=== PATIENT | female | born 1930 | race Caucasian/White ===

== ENCOUNTER 2016-08-20 15:00 | Inpatient (IN) | payer OTHER, MEDICARE ==
[~2016-08-20] VITALS: Ht 160 cm; Wt 40.8 kg
--- NOTE | ~2016-08-20 | PR ---
[place], [place] PROGRESS NOTE NAME: VANESSA RODRIGUEZ UNIT #: [id number] ROOM: 428 DOCTOR: SUKHDEEP RAE MD BIRTHDATE: [birth year] DOS: 08/26/2016 SUBJECTIVE: The patient is complaining of significant lower back pains, and she is uncomfortable, and she has not had her Dilaudid since yesterday. OBJECTIVE: VITAL SIGNS: Blood pressure 118/44, heart rate of 85 beats per minute, breathing 8 times per minute, temperature 98 degrees Fahrenheit. GENERAL APPEARANCE: The patient is alert and oriented x3, in no visible distress. Generalized weakness. HEENT AND NECK: Exam within normal limits. CARDIOVASCULAR SYSTEM: Heart rate is regular in rate and rhythm. S1 and S2 normally audible. LUNGS: Clear to auscultation. ABDOMEN: Soft, nontender. No obvious organomegaly. Bowel sounds are present. EXTREMITIES: Without significant cyanosis or edema. IMPRESSION: 1. The patient with significant lower back pains, and she did not receive her Dilaudid. I am going to convert it to automatic dosing at every 4 hours to avoid this happening again. The patient already on fentanyl patch and end of life care. 2. 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 3. Benign essential hypertension with controlled blood pressures. 4. Intractable nausea and vomiting is related to malignancy is much better controlled now with treatment. SUKHDEEP RAE MD CM:PNTRANS [id number] SUKHDEEP RAE MD 08/27/16 0649 interface
--- NOTE | ~2016-08-20 | PR ---
[place], [place] PROGRESS NOTE NAME: VANESSA RODRIGUEZ UNIT #: [id number] ROOM: 428 DOCTOR: RISA LEWIS MD BIRTHDATE: [birth year] DOS: 08/31/2016 SUBJECTIVE: The patient is showing no new changes. PHYSICAL EXAMINATION: VITAL SIGNS: Blood pressure 110/38, pulse of 90, respirations 18, temperature 98.6. GENERAL: Unresponsive, lethargic. LUNGS: Diminished breath sounds, clear. HEART: Regular. ASSESSMENT AND PLAN: CA of the breast with mets, on hospice care. The patient is unresponsive. Continue supportive, symptomatic are. No new changes made in the treatment plan. RISA LEWIS MD CM:PNTRANS [id number] RISA LEWIS MD 10/06/16 1447 interface
--- NOTE | ~2016-08-20 | PR ---
[place], [place] PROGRESS NOTE NAME: VANESSA RODRIGUEZ UNIT #: [id number] ROOM: 428 DOCTOR: RISA LEWIS MD BIRTHDATE: [birth year] DOS: 08/29/2016 SUBJECTIVE: The patient is still pretty lethargic and unresponsive. OBJECTIVE: VITAL SIGNS: Graphic trend shows pressure of 94/34, respirations 8, temperature 99.4, pulse of 101. LUNGS: Diminished breath sounds, but clear. HEART: Regular. ASSESSMENT AND PLAN: The patient non-hospice care, end-stage with underlying severe mets from carcinoma breast, prognosis remains poor and guarded. She appears comfortable, no changes made in the medicines today. RISA LEWIS MD CM:PNTRANS [id number] RISA LEWIS MD 08/30/16199 interface
--- NOTE | ~2016-08-20 | PR ---
[place], [place] PROGRESS NOTE NAME: VANESSA RODRIGUEZ UNIT #: [id number] ROOM: 505 DOCTOR: SUKHDEEP RAE MD BIRTHDATE: [birth year] DOS: 08/21/2016 SUBJECTIVE: The patient is awake, oriented, looking very weak and uncomfortable, although her nausea has improved and she is not complaining of any significant pain. OBJECTIVE: GENERAL APPEARANCE: The patient is alert and oriented x 3, in no visible distress. except for generalized weakness and the patient is somewhat uncomfortable. VITAL SIGNS: Blood pressure 102/54, heart rate 81 beats per minute, breathing 20 times per minute, temperature 98 degrees Fahrenheit. HEENT AND NECK: Exam within normal limits. CARDIOVASCULAR SYSTEM: Heart rate is regular in rate and rhythm. S1 and S2 normally audible. LUNGS: Clear to auscultation. ABDOMEN: Soft, nontender. No obvious organomegaly. Bowel sounds are present. EXTREMITIES: Without significant cyanosis or edema. IMPRESSION: The patient for end-of-life care under hospice at [facility]. The patient is somewhat uncomfortable because of recurrent nausea and she is also complaining of constipation. I am adding MiraLax and also give her Ativan on regular basis to keep her comfortable. This was discussed with patient's daughter and she agrees and patient also agrees. The patient on morphine on as needed basis for pain control. Intractable nausea and vomiting, somewhat improved. I will change her metoclopramide to IV and also keep her on IV Zofran to get her to feel better and I will follow her closely. For pain control, the patient is on Dilaudid every 12 hours as needed for pain control. I will also keep her on fentanyl patch for baseline pain control. [place], [place] PROGRESS NOTE NAME: VANESSA RODRIGUEZ UNIT #: [id number] ROOM: 505 DOCTOR: SUKHDEEP RAE MD BIRTHDATE: [birth year] SUKHDEEP RAE MD CM:PNTRANS [phone] SUKHDEEP RAE MD 08/22/16 0644 interface
--- NOTE | ~2016-08-20 | PR ---
[place], [place] PROGRESS NOTE NAME: VANESSA RODRIGUEZ UNIT #: [id number] ROOM: 428 DOCTOR: SUKHDEEP RAE MD BIRTHDATE: [birth year] DOS: 08/23/2016 SUBJECTIVE: The patient says she has mild nausea and no significant pains and she is much more comfortable. OBJECTIVE: VITAL SIGNS: Blood pressure 124/56, heart rate of 83 beats per minute, breathing 16 times per minute, temperature of 98 degrees Fahrenheit. GENERAL APPEARANCE: The patient is cachexic, very weak, with generalized weakness, but she is oriented, although comfortable. HEENT AND NECK: Exam within normal limits. CARDIOVASCULAR SYSTEM: Heart rate is regular in rate and rhythm. S1 and S2 normally audible. LUNGS: Clear to auscultation. ABDOMEN: Soft, nontender. No obvious organomegaly. Bowel sounds are present. EXTREMITIES: Without significant cyanosis or edema. IMPRESSION: 1. 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 2. Intractable nausea, improved with treatment with Zofran, Reglan p.r.n., and Phenergan. 3. Benign essential hypertension, controlled with pressors. 4. Severe upper abdominal pains, controlled with fentanyl patch and p.r.n. morphine. 5. The patient with comfort measures only, being followed very closely under the care of hospice. SUKHDEEP RAE MD CM:PNTRANS [id number] SUKHDEEP RAE MD 08/24/16 1241 interface
--- NOTE | ~2016-08-20 | PR ---
[place], [place] PROGRESS NOTE NAME: VANESSA RODRIGUEZ UNIT #: [id number] ROOM: 428 DOCTOR: SUKHDEEP RAE MD BIRTHDATE: [birth year] DOS: 08/24/2016 SUBJECTIVE: The patient appears comfortable but she is asking for Dilaudid dose, which works well for her. Very weak. Does complain of some nausea, but not severe. OBJECTIVE: VITAL SIGNS: Blood pressure 128/84, heart rate of 81 beats per minute, breathing 18 times per minute, afebrile. GENERAL APPEARANCE: Generalized weakness, emaciation, and cachexia. HEENT AND NECK: Exam within normal limits. CARDIOVASCULAR SYSTEM: Heart rate is regular in rate and rhythm. S1 and S2 normally audible. LUNGS: Clear to auscultation. ABDOMEN: Soft, nontender. No obvious organomegaly. Bowel sounds are present. EXTREMITIES: Without significant cyanosis or edema. IMPRESSION: 1. End-stage metastatic cancer of the breast and no metastasis of the colon and skeleton with severe pain in the epigastric area, controlled with p.r.n. Dilaudid. I am increasing her fentanyl patch to 100 mcg today. 2. Severe intractable nausea and vomiting, much better with present treatment which is being continued. 3. Benign essential hypertension with controlled blood pressures. 4. The patient under hospice care, admitted to the hospital. Her prognosis remains very poor but she is much more comfortable now as compared to when she was admitted. SUKHDEEP RAE MD CM:PNTRANS 1642 001 SUKHEDEP RAE MD 08/25/16 0011 interface
--- NOTE | ~2016-08-20 | PR ---
[place], [place] PROGRESS NOTE NAME: VANESSA RODRIGUEZ UNIT #: [id number] ROOM: 428 DOCTOR: RISA LEWIS MD BIRTHDATE: [birth year] DOS: SUBJECTIVE: The patient is doing poorly, but resting comfortably, seems to be mostly unresponsive, she did not respond to call or stimuli. OBJECTIVE: VITAL SIGNS: Blood pressure is 114/43, pulse of 90, respirations about 10, temperature is 97.4. LUNGS: Diminished breath sounds clear. HEART: Regular. ASSESSMENT AND PLAN: An 86-year-old who is end-stage, on hospice care for breast cancer with mets. Continue Dilaudid and fentanyl. She seems comfortable and we will increase the Dilaudid for better control of pain. RISA LEWIS MD CM:PNTRANS 0801 [id number] RISA LEWIS MD 10/06/16 1447 interface
--- NOTE | ~2016-08-20 | DS ---
[place], [place] DISCHARGE SUMMARY [id number] UNIT #: [id number] ROOM: 428 DOCTOR: SUKHDEEP RAE MD BIRTHDATE: [birth year] DOS: 08/31/2016 DISCHARGE DIAGNOSES: 1. The patient with end-stage metastatic cancer of the breast with known metastasis to the colon and from her disease. 2. Intractable nausea and vomiting and abdominal pains, which were severe and controlled with treatment. 3. Benign essential hypertension. 4. Severe protein calorie malnutrition. 5. Dehydration and hypovolemia from nausea and vomiting. 6. History of pulmonary embolism. 7. Pulmonary hypertension and chronic obstructive pulmonary disease, centrilobular emphysema. HOSPITAL COURSE: The patient was admitted for comfort care and palliative care at [facility] for severe recurrent nausea, vomiting, epigastric and abdominal pains. The patient was treated with Zofran, Phenergan, and Reglan and her nausea and vomiting was controlled. Chronic pains and failure to thrive, especially abdominal pains. The patient wanted to be kept comfortable and she was treated with morphine and pains were reasonably controlled. The patient was given palliative and comfort care only and finally she on 08/31/2016. For further details of her management during her hospital stay, please refer to the chart. SUKHDEEP RAE MD CM:DISCHARG 1414 [id number] SUKHDEEP REA MD 10/06/16 1444 interface
--- NOTE | ~2016-08-20 | PR ---
[place], [place] PROGRESS NOTE NAME: VANESSA RODRIGUEZ UNIT #: [id number] ROOM: 428 DOCTOR: SUKHDEEP RAE MD BIRTHDATE: [birth year] DOS: 08/25/2016 SUBJECTIVE: The patient appears comfortable. She has no complaints, looking very weak. OBJECTIVE: VITAL SIGNS: Blood pressure 117/44, heart rate 91 beats per minute, breathing only 4 times per minute, temperature 97.4 degrees Fahrenheit. GENERAL APPEARANCE: The patient is alert and oriented x 3, in no visible distress, generalized weakness. HEENT AND NECK: Exam within normal limits. CARDIOVASCULAR SYSTEM: Heart rate is regular in rate and rhythm. S1 and S2 normally audible. LUNGS: Clear to auscultation. ABDOMEN: Soft, nontender. No obvious organomegaly. Bowel sounds are present. EXTREMITIES: Without significant cyanosis or edema. IMPRESSION: 1. End-stage metastatic cancer of the breast with metastasis to the colon and skeleton with severe pain in epigastric area. The patient being treated with fentanyl patch and p.r.n. Dilaudid and she appears comfortable. 2. Intractable nausea and vomiting related to the malignancy, better controlled now. 3. Benign essential hypertension with controlled blood pressures. 4. The patient for end-of-life care and is admitted to the hospital with the hospice services. SUKHDEEP RAE MD CM:PNTRANS [phone] SUKHDEEP RAE MD 08/25/16 2340 interface
--- NOTE | ~2016-08-20 | PR ---
[place], [place] PROGRESS NOTE NAME: VANESSA RODRIGUEZ UNIT #: [id number] ROOM: 428 DOCTOR: SUKHDEEP RAE MD BIRTHDATE: [birth year] DOS: 08/27/2016 SUBJECTIVE: The patient is resting and not arousable. PHYSICAL EXAMINATION: VITAL SIGNS: Blood pressure 106/42, breathing 4 to 7 times per minute, afebrile, heart rate from 60-90 beats per minute. NEURO: On physical exam, generalized weakness. The patient is unresponsive today. The patient is emaciated and cachexic. GENERAL APPEARANCE: The patient is alert and oriented x 3, in no visible distress. HEENT AND NECK: Exam within normal limits. CARDIOVASCULAR SYSTEM: Heart rate is regular in rate and rhythm. S1 and S2 normally audible. LUNGS: Clear to auscultation. ABDOMEN: Soft, nontender. No obvious organomegaly. Bowel sounds are present. EXTREMITIES: Without significant cyanosis or edema. IMPRESSION: The patient with end-stage breast cancer with metastasis to the colon and skeleton with severe pain in her upper abdomen and later on lower back, now controlled with Dilaudid on regular basis. The patient is unresponsive today. She is also on a fentanyl patch, and she is admitted under hospice for end of life care. Benign essential hypertension, controlled blood pressure. Intractable nausea and vomiting is reasonably controlled with treatment. It is secondary to malignancy. SUKHDEEP RAE MD CM:PNTRANS [phone] SUKHDEEP RAE MD 08/28/16 0154 interface
--- NOTE | ~2016-08-20 | WRIGHTHP ---
[place], [place] PATIENT HISTORY AND PHYSICAL EXAM NAME: VANESSA RODRIGUEZ [facility] #: [id number] UNIT #: [id number] ROOM: 505 DOCTOR: SUKHDEEP RAE MD BIRTHDATE: [birth year] DOS: 08/20/2016 HISTORY OF PRESENT ILLNESS: The patient is an 86-year-old female, presently being admitted under care of hospice services for; 1. End-stage metastatic cancer of the breast with known metastasis to the colon and vertebrae. 2. Intractable nausea and vomiting and abdominal pains, which is severe. 3. Benign essential hypertension. 4. Severe protein-calorie malnutrition. 5. History of dehydration and hypovolemia from nausea and vomiting. 6. Previous history of ischemic colitis. 7. History of pulmonary embolism. 8. History of pulmonary hypertension and chronic obstructive pulmonary disease. The patient is presently admitted for comfort care and palliative care at [facility] for severe and recurrent nausea, vomiting, and epigastric abdominal pains, which has somewhat improved with treatment with Zofran, Phenergan, Reglan, and morphine being used for pain. The patient was opted to be readmitted under care of community hospice services for end-of-life care. Plan is to keep the patient on these medications as she has become much more comfortable as compared to when she came into the hospital. The patient is not severely vomiting anymore and her nausea has also improved and the pain is under better control. 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 I will also keep her on a fentanyl patch for better pain control and continue morphine on p.r.n. basis. Severe anxiety related to pain, nausea, vomiting, and her present health situation. The patient is being treated with Ativan on a p.r.n. basis and hospice nurses to follow. Severe protein-calorie malnutrition. The patient to be kept on comfort foods only. The patient's prognosis remains very poor. We will take bedsore precautions. Turn every 2 hours and use an air mattress. PHYSICAL EXAMINATION: GENERAL: The patient is very weak, somewhat uncomfortable, but looking better than before. Weak and cachectic. VITAL SIGNS: Blood pressure 110/55, heart rate 89 beats per minute, breathing 18 times per minute, temperature of 98 degrees Fahrenheit. HEENT AND NECK: Extraocular movements are intact. Sclerae are anicteric. Oral mucosa is moist and clean. No obvious facial weakness. Neck is supple without any lymphadenopathy. No thyromegaly. No JVD. No carotid arterial bruits. LUNGS: Clear to auscultation. No wheezing. No rhonchi. CARDIOVASCULAR SYSTEM: Heart rate is regular in rate and rhythm. S1 and S2 normally audible. No significant murmur or any other abnormal cardiac sounds. [place], [place] PATIENT HISTORY AND PHYSICAL EXAM NAME: VANESSA RODRIGUEZ UNIT #: [id number] ROOM: [facility] DOCTOR: SUKHDEEP RAE MD BIRTHDATE: [birth year] ABDOMEN: She has significant tenderness in her epigastric area on palpation. Bowel sounds are present. EXTREMITIES: Without significant cyanosis or edema. Warm to touch. CENTRAL NERVOUS SYSTEM: Alert and oriented x 3. Cranial nerves II-XII are intact. Speech is normal. The patient is able to move all extremities. Normal muscle strength. Deep tendon reflexes are equal on both sides. Plantars were downgoing. MEDICATIONS: Her medication list is atropine oral drops, metoclopramide, Cetrizine, DuoNebs, Zofran, Pepcid, promethazine, morphine concentrate orally, lorazepam. SUKHDEEP RAE MD CM:HISPHYS:PATIENT HISTORY AND PHYSICAL EXAMINATION 1440 1525 SUKHDEEP RAE MD 08/20/16 1552 interface
--- NOTE | ~2016-08-20 | PR ---
[place], [place] PROGRESS NOTE NAME: VANESSA RODRIGUEZ UNIT #: [id number] ROOM: 428 DOCTOR: RISA LEWIS MD BIRTHDATE: [birth year] DOS: SUBJECTIVE: The patient is about the same, does not have any new changes. She is still unresponsive and lethargic. OBJECTIVE: VITAL SIGNS: Graphic trend shows a pressure of 105/35, pulse of 90, respirations 11, temperature 98.3, a lot of apneic spells. LUNGS: Diminished breath sounds. HEART: Regular. ASSESSMENT AND PLAN: CA breast with metastasis, end stage, on hospice. Continue supportive and symptomatic care. RISA LEWIS MD CM:PNTRANS 0721 1323 RISA LEWIS MD 08/30/16 1322 interface
--- NOTE | ~2016-08-20 | PR ---
[place], [place] PROGRESS NOTE NAME: VANESSA RODRIGUEZ UNIT #: [id number] ROOM: 505 DOCTOR: SUKHDEEP RAE MD BIRTHDATE: [birth year] DOS: 08/22/2016 SUBJECTIVE: The patient is much more comfortable. She says the nausea is reasonably controlled and she does not have much pains anymore. OBJECTIVE: VITAL SIGNS: Blood pressure 118/46, heart rate 85 beats per minute, breathing 14 times per minute, temperature 98 degrees Fahrenheit. GENERAL APPEARANCE: The patient is alert and oriented x 3, in no visible distress except for cachexia, emaciation, generalized weakness. HEENT AND NECK: Exam within normal limits. CARDIOVASCULAR SYSTEM: Heart rate is regular in rate and rhythm. S1 and S2 normally audible. LUNGS: Clear to auscultation. ABDOMEN: Soft, nontender. No obvious organomegaly. Bowel sounds are present. EXTREMITIES: Without significant cyanosis or edema. IMPRESSION: 1. The patient with end-stage metastatic cancer of the breast with known metastasis to the colon and vertebrae with severe abdominal pains and intractable nausea and vomiting, under hospice care now. 2. Intractable nausea and vomiting have improved with present treatment, which I will continue. 3. Severe anxiety and some agitation, all much better now. The patient appears very comfortable. 4. Severe abdominal pains are much better. The patient on fentanyl patch and on p.r.n. morphine, appears much more comfortable. The patient continues to be at the hospital under hospice admission. SUKHDEEP RAE MD CM:PNTRANS 1750 0337 SUKHDEEP RAE MD 08/23/16 0337 interface
[~2016-08-20 15:00] MED LIST: ARIMIDEX1 MG PO; ASPIRIN81 M1; CALCIUM ANTAC1000 MG PO; CIPRO500 MG PO; CIPROFLOXACIN500 M4 PO; COUMADIN3 M1 PO; DILTIAZEM30 MG PO; DUONEB 3 MG/3 ML3 M1 INH; KLOR-CON 1010 ME1 PO; LASIX40 MG PO; LISINOPRIL5 MG PO; LOVENOX100 MG/1 M PO; MIRALAX POWDER17 G1 PO; NEBULIZER; OXYCODONE H5 MG/5 ML PO; OXYCODONE-ACET500 ML PO; OXYGEN NAS; Ranitidine Hyd150 MG PO; STOOL SOFTENER240 M2 PO; TUMS 500500 MG PO; TUMS ULTRA ST1000 MG; VITAMIN D1000 IU; WARFARIN2 MG PO; WARFARIN4 MG PO; ZOFRAN8 M1 PO
[2016-08-20 16:00] VITALS: BP 106/46
[2016-08-20] MEDS ORDERED: DILAUDID1 MG/1 ML IV (16:50)
[2016-08-20] MEDS ORDERED: REGLAN10 M1 PO (16:51)
[2016-08-20] MEDS ORDERED: PEPCID AC10 M2 PO (16:52)
[2016-08-20] MEDS ORDERED: ATIVAN1 MG PO (16:54)
[2016-08-20] MEDS ORDERED: OXYGEN NAS (16:55)
[2016-08-20] MEDS ORDERED: DUONEB 3 MG/3 ML3 M1 INH (16:56)
[2016-08-20] MEDS ORDERED: TYLENOL650 MG R (16:58)
[2016-08-21] VITALS: BP 109/50
[2016-08-21 08:00] VITALS: BP 104/52
[2016-08-21 12:00] VITALS: BP 106/54
[2016-08-21 16:00] VITALS: BP 102/54
[2016-08-22] VITALS: BP 110/46
[2016-08-22 08:00] VITALS: BP 130/68
[2016-08-22 12:00] VITALS: BP 118/46
[2016-08-22 20:00] VITALS: BP 105/47
[2016-08-23] VITALS: BP 109/50
[2016-08-23 08:00] VITALS: BP 124/56
[2016-08-23 16:00] VITALS: BP 116/45
[2016-08-23 20:00] VITALS: BP 109/50
[2016-08-24] VITALS: BP 101/54
[2016-08-24 08:00] VITALS: BP 128/84
[2016-08-24 16:00] VITALS: BP 128/59; BP 134/94
[2016-08-25] VITALS: BP 126/48
[2016-08-25 04:00] VITALS: BP 115/42
[2016-08-25 08:00] VITALS: BP 117/44
[2016-08-25 16:00] VITALS: BP 124/50
[2016-08-25 20:00] VITALS: BP 109/39
[2016-08-26] VITALS: BP 113/41
[2016-08-26 04:00] VITALS: BP 116/43
[2016-08-26 08:00] VITALS: BP 125/41
[2016-08-26 12:00] VITALS: BP 118/44
[2016-08-26 20:00] VITALS: BP 110/45
[2016-08-27] VITALS: BP 109/35
[2016-08-27 04:00] VITALS: BP 117/40
[2016-08-27 08:00] VITALS: BP 106/42
[2016-08-27 12:00] VITALS: BP 99/30
[2016-08-27 16:00] VITALS: BP 111/44
[2016-08-27 20:00] VITALS: BP 121/43
[2016-08-28] VITALS: BP 114/43
[2016-08-28 08:00] VITALS: BP 126/52
[2016-08-28 12:00] VITALS: BP 127/53
[2016-08-28 16:00] VITALS: BP 114/50
[2016-08-28 20:00] VITALS: BP 111/35
[2016-08-29] VITALS: BP 110/34
[2016-08-29 08:00] VITALS: BP 94/34
[2016-08-29 12:00] VITALS: BP 95/36
[2016-08-29 16:00] VITALS: BP 86/34
[2016-08-29 20:00] VITALS: BP 76/26
[2016-08-30] VITALS: BP 102/36
[2016-08-30 04:00] VITALS: BP 105/35
[2016-08-30 08:00] VITALS: BP 117/40
[2016-08-30 12:00] VITALS: BP 118/42
[2016-08-30 16:00] VITALS: BP 120/40
[2016-08-30 20:00] VITALS: BP 116/42
[2016-08-31] VITALS: BP 91/36
[2016-08-31 04:00] VITALS: BP 100/46
[2016-08-31 08:00] VITALS: BP 110/38
[2016-08-31 11:59] VITALS: BP 111/41
== END 2016-08-31 16:11 | disposition expired | DRG 598 ==
LOC: 5E 15:00 → 4E 08-23 13:06
DX: C50.919 Malignant neoplasm of unspecified site of unspecified female breast (principal); C78.5 Secondary malignant neoplasm of large intestine and rectum; C79.51 Secondary malignant neoplasm of bone; I10 Essential (primary) hypertension; F41.9 Anxiety disorder, unspecified; J44.9 Chronic obstructive pulmonary disease, unspecified; I27.2 Other secondary pulmonary hypertension; Z51.5 Encounter for palliative care; Z86.711 Personal history of pulmonary embolism; Z87.19 Personal history of other diseases of the digestive system